=== PATIENT | male | born 1970 | race Caucasian/White ===

== ENCOUNTER 2025-01-12 04:03 | Emergency (ER) | payer OTHER ==
[2025-01-12 04:14] VITALS: BP 130/81; PULSE 82; RESP 18; TEMP 97.7; BMI 23.7
[2025-01-12] MEDS ORDERED: DALBAVANCIN HCL 500 MG VIAL (RESTRICTED TO ID ONLY) IVPB ONE (04:43)
[2025-01-12] MEDS: DALBAVANCIN HCL 1,500 MG in DEXTROSE 5%-WATER - 500 ML IVPB ONE (05:00)
== END 2025-01-12 05:37 | disposition home or self-care (01) ==
LOC: FER 04:03
PROC: 3E033GC Introduction of Other Therapeutic Substance into Peripheral Vein, Percutaneous Approach (ICD-10-PCS; principal; 2025-01-12)
DX: L03.211 Cellulitis of face (principal); R22.0 Localized swelling, mass and lump, head
CPT/HCPCS: 99284-25; J0875

== ENCOUNTER 2025-01-12 15:05 | Emergency (ER) | payer OTHER ==
[2025-01-12 15:16] VITALS: BP 127/74; PULSE 84; RESP 18; TEMP 98.2; BMI 23.7
[2025-01-12] MEDS ORDERED: CLINDAMYCIN HCL 150 MG CAPSULE (FP) ONE (16:39)
[2025-01-12] MEDS: CLINDAMYCIN HCL 150 MG CAPSULE (FP) PO ONE (16:41)
== END 2025-01-12 17:08 | disposition home or self-care (01) ==
LOC: FER 15:05
DX: L03.211 Cellulitis of face (principal); R22.0 Localized swelling, mass and lump, head
CPT/HCPCS: 99284-25